=== PATIENT | male | born 1935 | race Caucasian/White ===

== ENCOUNTER → 2016-09-13 | Outpatient (CLI) | payer MEDICARE, BC | END | disposition home or self-care (01) | LOC: PTH.S 09-06 09:00 | DX: C34.90 Malignant neoplasm of unspecified part of unspecified bronchus or lung (principal); R91.1 Solitary pulmonary nodule; R59.0 Localized enlarged lymph nodes ==

== ENCOUNTER 2016-09-17 09:22 | Day surgery (SDC) | payer MEDICARE, BC ==
[~2016-09-17] VITALS: Ht 167.6 cm; Wt 92.3 kg
== END 2016-09-17 14:00 | disposition home or self-care (01) ==
LOC: RAD.S 09:22 → EDSTATUS 11:00 → RAD.S 13:00
DX: C34.11 Malignant neoplasm of upper lobe, right bronchus or lung (principal); M48.06 Spinal stenosis, lumbar region

== ENCOUNTER 2016-09-19 10:54 | Emergency (ER) | payer MEDICARE, BC ==
--- NOTE | 2016-09-21 11:08 | ER ---
ADMIT: 09/19/2016 RM/LOC: ER [facility] MR#: [id number] [address] [facility] [address] [place], [place] [id number] [address] [address] [place] [address] Emergency Room Report SEX: M AGE: 81 : 1935 DATE: 09/19/2016 ADDENDUM: This patient comes into the ER because he had an episode of shortness of breath that lasted 5 minutes at 9 a.m. He thought about it for 2 hours and then decided that maybe he should come to the ER. When he comes to the ER. He states his biggest concern is constipation and pressure that he has in his belly. He has had issues with constipation, and he feels like it is a constant ongoing thing, the only way he could have a bowel movement is by taking laxatives. He recently had a lung biopsy that was done [address] Moss, and he has been coughing up a little bit of red blood, but he was told that was normal and really has not had any pain or shortness of breath prior to the 5 minutes that he experienced this morning. On physical exam, he is alert and talkative. His abdomen is slightly distended, but is soft. Lungs are clear. KUB did show a lot of gas and stool. He had a normal white count. Urinalysis was normal. Troponin and CK-MB were also normal along with his EKG. He was given a bottle of mag citrate. He did have a large bowel movement in the ER, which relieved the stomach pressure he was feeling. The patient expressed a lot of concerns about not feeling like he is being helped by his primary care and would like to follow up with somebody else. I did give him the name of Dr. Gonzalez, who is the on-call physician and the nurse made an appointment for them to be seen next week in his office. DIAGNOSIS: Constipation. Please see my T-sheet. SARAH Eason / Chace Medina MD / kira JOB #: [id number] CC: Chace Medina MD, Attending Physician Sami Altman MD, Family Physician
== END 2016-09-19 15:45 | disposition home or self-care (01) ==
LOC: ER 10:54
DX: K59.00 Constipation, unspecified (principal); F41.9 Anxiety disorder, unspecified; I10 Essential (primary) hypertension

== ENCOUNTER → 2016-11-02 | Outpatient (CLI) | payer MEDICARE, BC | END | disposition home or self-care (01) | LOC: RAD.S 15:28 | DX: R51 Headache (principal) ==